=== PATIENT | male | born 1995 | race Caucasian/White ===

== ENCOUNTER 2018-04-18 21:16 | Emergency (ER) | payer BC ==
[~2018-04-18 21:16] MED LIST: POLY10DR22 OP
[2018-04-18 21:20] VITALS: BP 131/90
--- NOTE | 2018-04-18 21:20 | ER Report ---
History and Physical Time Seen By MD: 21:19 HPI/ROS CHIEF COMPLAINT: Flash paniagua HISTORY OF PRESENT ILLNESS: 23-year-old male presents with burning eye pain bilaterally. 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 Complaining of bilateral flash paniagua from welding. He states he thought he was wearing goggles at all times. REVIEW OF SYSTEMS: Respiratory: No cough, no dyspnea. Cardiovascular: No chest pain, no palpitations. Gastrointestinal: No vomiting, no abdominal pain. Musculoskeletal: No back pain. Allergies: Coded Allergies: No Known Drug Allergies (Unverified , 04/18/18) Home Meds Discontinued Scripts Polymyxin B Sulf/Trim 10,000 Unt-1 Mg/Ml Op (POLYMYXIN B-TMP EYE DROPS) 10 Ml Drops, 1 DROP OP 4 times, #1 BOT Prov:CHANDA SUMNER PA-C 01/26/17 Reviewed Nurses Notes: Yes Old Medical Records Reviewed: Yes Hx Substance Use Disorder: No Hx Alcohol Use: Yes (occasional) Constitutional Vital Sign - Last 24 Hours 04/18/18 21:20 Temp 97.7 Pulse 86 Resp 16 B/P (MAP) 131/90 Pulse Ox 93 O2 Delivery Room Air Physical Exam General Appearance: The patient is alert, has no immediate need for airway protection and no current signs of toxicity. Visual acuity noted Eyes: Pupils equal and round no injection. Floor seen is instilled in the eyes bilaterally. There is bilateral stippling, right greater than left. There is minimal injection of the conjunctiva bilaterally Respiratory: Chest is non tender, lungs are clear to auscultation. Cardiac: regular rate and rhythm Extremities have full range of motion and are non tender. Skin: No rashes or lesions. DIFFERENTIAL DIAGNOSIS: After history and physical exam differential diagnosis w as considered for ultraviolet flash paniagua, conjunctivitis, iritis Medical Decision Making ED Course/Re-evaluation ED Course Patient was admitted to an examination room. H&P was done. The differential diagnoses was considered. On clinical examination. Patient is ultraviolet paniagua. His visual acuities is consistent with his injuries. Patient's discharged home with a prepack of Lortab 2 tablets for pain relief. He is given proparacaine drops and cautioned not to rub his eyes. If he is using proparacaine for pain relief. He's also advised to take ibuprofen. Patient's given Tobrex drops to use. He is advised to follow-up with ophthalmology if unimproved in 2 days. Decision to Disposition Date: Apr 18, 2018 Decision to Disposition Time: 21:42 Depart Departure Latest Vital Signs Vital Signs Date Time Temp Pulse Resp B/P (MAP) Pulse Ox O2 Delivery O2 Flow Rate FiO2 04/18/18 21:20 97.7 86 16 131/90 93 Room Air Impression: Primary Impression: Flash burn of both eyes Condition: Improved Disposition: HOME OR SELF-CARE Referrals: LORI ALCANTAR MD New Scripts No Active Prescriptions or Reported Meds Patient Instructions: Corneal Flash Paniagua (ED) Additional Instructions: Use Tobrex drops 1 drop 2-3 times per day Take ibuprofen as needed for pain relief Use proparacaine numbing drops, be extremely careful not to rub her eye when your eyes are non-mucousy and damaged her corneas Follow-up with ophthalmology if unimproved in 2 days CONSTANTINO ROCA DO Apr 18, 2018 21:20
[2018-04-18] MEDS ORDERED: TOBRAMYCIN/DEX OP SUSP 2.5 ML OU ONE (21:30)
[2018-04-18] MEDS ORDERED: PROPARACAINE 0.5% OP 15ML BTL OU ONE (21:30)
[2018-04-18] MEDS ORDERED: PROPARACAI/FLUORESCEIN 5 ML OP DROPS OU ONE (21:40)
[2018-04-18] MEDS ORDERED: ACET/HYDROC 5/325MG TH ER ONLY 2 TAB/BOTTLE PO ONE (21:45)
== END 2018-04-18 21:54 | disposition home or self-care (01) ==
LOC: ER 21:48
DX: T26.42XA Burn of left eye and adnexa, part unspecified, initial encounter (principal); T26.41XA Burn of right eye and adnexa, part unspecified, initial encounter; W89.0XXA Exposure to welding light (arc), initial encounter
CPT/HCPCS: 99283

== ENCOUNTER 2018-04-20 13:56 | Emergency (ER) | payer BC ==
[2018-04-20 14:00] VITALS: BP 136/92
[2018-04-20] MEDS ORDERED: TOBR5DRO OP (14:02)
[2018-04-20] MEDS ORDERED: PROPARACAINE 0.5% OP 15ML BTL OD ONE (14:20)
[2018-04-20] MEDS ORDERED: PROPARACAI/FLUORESCEIN 5 ML OP DROPS OP ONE (14:20)
--- NOTE | 2018-04-20 14:54 | ER Report ---
History and Physical Time Seen By MD: 14:05 Hx. of Stated Complaint: BURN TO LEFT EYE FROM WELDING TWO DAYS AGO - REPORTS THAT THE PAIN IS WORSE TODYA. HPI/ROS CHIEF COMPLAINT: burn to eye HISTORY OF PRESENT ILLNESS: Patient returns 2 days after reported welding burn to bilateral eyes with increasing pain especially in the left eye. Patient states that he was wearing mask however felt that there was reflexion from welding and had gradual onset of pain. Patient has been using proparacaine and topical abx without sig relief. Pt states pain in r eye is essentially resolved, l eye is increasing. Pt denies woody other than radiating from eyes, denies fever, sob, cp, or other systemic symptoms, other than nausea from pain. REVIEW OF SYSTEMS: Respiratory: No cough, no dyspnea. Cardiovascular: No chest pain, no palpitations. Gastrointestinal: No vomiting, no abdominal pain. Musculoskeletal: No back pain. Remainder of the 14 system rev: Yes Allergies: Coded Allergies: No Known Drug Allergies (Unverified , 04/18/18) Home Meds Reported Medications Tobramycin (TOBRAMYCIN) 5 Ml Drops, 5 ML OP TID 04/20/18 Discontinued Scripts Polymyxin B Sulf/Trim 10,000 Unt-1 Mg/Ml Op (POLYMYXIN B-TMP EYE DROPS) 10 Ml Drops, 1 DROP OP 4 times, #1 BOT Prov:CHANDA SUMNER PA-C 01/26/17 Hx Substance Use Disorder: No Hx Alcohol Use: Yes (occasional) Constitutional Vital Sign - Last 24 Hours 04/20/18 14:00 Temp 98.8 Pulse 81 Resp 18 B/P (MAP) 136/92 Pulse Ox 94 O2 Delivery Room Air Physical Exam General Appearance: Alert, mild discomfort Eyes: Pupils equal and round no pallor, Left eye has moderate injection. There is no discharge. There is evidence of metallic foreign body. Fluorescein exam reveals uptake, approx 1 mm mid visual axis, 2 mm below horizontal midline. Negative Ofelia's Slit lamp exam: L/L/L - nl Conj/Sclera- mild conj injection; no scleritis Cornea - metallic fb as above AC: D/Q no cell/flare Skin: Periorbital skin is not inflamed. DIFFERENTIAL DIAGNOSIS: After history and physical exam differential diagnosis was considered for a red eye including but not limited to foreign body, conjunctivitis, iritis and corneal abrasion. Medical Decision Making ED Course/Re-evaluation ED Course FB OS noted; I removed fb but rust ring persists. I controlled pain with lortab and cyclogel. I consulted [facility] and pt will f/u tomorrow AM at 0810. Pt comfortable with plan; there is no e/o open globe, hyphema, or other complication. Tetanus updated as pt did not know last tetanus. Procedure Procedure: Foreign body removal from eye cornea: Anesthesia: Topical After verbal consent from the patient, an embedded metal foreign body was removed from left eye cornea. The foreign body was removed manually using a needle using direct visualization. Following removal there was a rust ring. After verbal consent, I attempted to remove rust ring with rey; superficial layer removed, however deeper rust ring was present. There were no complications and the patient tolerated the procedure well. The procedure was performed by myself. Fluorescein exam after removal was neg for Ofelia's sign Pt's VA 20/100 L with pinhole correction Decision to Disposition Date: Apr 20, 2018 Decision to Disposition Time: 16:08 Depart Departure Latest Vital Signs Vital Signs Date Time Temp Pulse Resp B/P (MAP) Pulse Ox O2 Delivery O2 Flow Rate FiO2 04/20/18 14:00 98.8 81 18 136/92 94 Room Air Impression: Primary Impression: Eye foreign body Condition: Improved Disposition: HOME OR SELF-CARE New Scripts Diazepam (VALIUM) 5 Mg Tablet 5 MG PO QHS for PAIN, #2 TAB Prov: LESA COOK MD 04/20/18 Hydrocodone Bit/Acetaminophen (HYDROCODON-ACETAMINOPHEN 5-325) 1 Each Tablet 1 EACH PO Q4H PRN for PAIN, #12 TAB 0 Refills Prov: LESA COOK MD 04/20/18 Patient Instructions: Eye Foreign Body (ED) Additional Instructions: As we discussed; 1) You have an appointment tomorrow at [address] Brush: [facility] [address] [facility] [address] Take pain medications as needed; continue to use topical antibiotics. Do NOT use topical numbing drops (proparacain/alcaine, etc.) as this may cause predatory animal exterminator cornea damage. Return for uncontrolled pain or any concerns. Problem Qualifiers Primary Impression: Eye foreign body Encounter type: initial encounter Laterality: left Qualified Codes: T15.92XA - Foreign body on external eye, part unspecified, left eye, initial encounter LESA COOK MD Apr 20, 2018 14:54
[2018-04-20] MEDS ORDERED: CYCLOPENTOLATE HCL 1% OD ONE (14:55)
[2018-04-20] MEDS ORDERED: APAP/HYDROCODONE 325/5 TAB PO ONE (15:25)
[2018-04-20] MEDS ORDERED: DIA5 PO (15:59)
[2018-04-20] MEDS ORDERED: LOR5/325 PO (15:59)
[2018-04-20] MEDS ORDERED: DIPHTH/TETANUS/ACEL. PERTUSSIS IM ONLY ONE (16:00)
== END 2018-04-20 16:10 | disposition home or self-care (01) ==
LOC: ER 14:01
DX: T15.92XA Foreign body on external eye, part unspecified, left eye, initial encounter (principal)
CPT/HCPCS: 90471; 90715; 99283

== ENCOUNTER → 2018-06-27 | Outpatient (REF) | payer BC ==
[~2018-06-27] MED LIST changes: +DIA5 PO; +LOR5/325 PO; +TOBR5DRO OP
== END ==
LOC: ZZSENDIN 17:02
PROVIDERS: ATTEND Family Medicine
DX: K92.0 Hematemesis (principal)
CPT/HCPCS: 83690

== ENCOUNTER 2018-07-09 10:56 | Outpatient (RCR) | payer BC ==
[~2018-07-09 10:56] MED LIST changes: +PANT40TA65 PO
[2018-07-13] MEDS ORDERED: OMEP-125 PO (09:55)
[2018-07-13] MEDS ORDERED: THIA100T2 PO (09:55)
== END 2018-08-13 ==
LOC: RAD 10:56
PROVIDERS: ATTEND Surgery
DX: Z02.9 Encounter for administrative examinations, unspecified (principal)

== ENCOUNTER → 2018-07-23 | Day surgery (SDC) | payer BC ==
[~2018-07-23] VITALS: Ht 182.9 cm; Wt 77.1 kg
[~2018-07-23] MED LIST changes: +GLYCOPYRROLATE 0.2MG/ML 1 ML INJ IVP ONE; +LIDOCAINE MPF 1% 5 ML VIAL ONE; +LIDOCAINE/SOD BICARB 8.4% SYR ID ONE; +NORMOSOL R SOLN(*) 1000 ML BAG 1,000 ML IV PRN; +OMEP-125 PO; +PROPOFOL EMUL(*) 10MG/ML 20 ML 60 ML ONE; +THIA100T2 PO
[2018-07-23 07:41] VITALS: BP 127/85
[2018-07-23 08:30] VITALS: BP 105/62
[2018-07-23 08:45] VITALS: BP 115/69
--- NOTE | 2018-07-23 08:50 | Short(Outpt) Discharge Summary ---
Discharge Summary Reason for Hosp/Final Diag: (1) Hematemesis Status: Resolved Hospital Course & Plan: EGD with biopsies completed without problems. (2) Melena Status: Resolved (3) Nausea & vomiting Status: Resolved Departure Discharge to: Home, Self Care Discharge Instructions Home Meds Reported Medications Omeprazole (OMEPRAZOLE) 20 Mg Capsule.dr, 1 CAP PO QDAY, CAP 07/13/18 Thiamine Mononitrate (VITAMIN B-1) 100 Mg Tablet, 100 MG PO DAILY 07/13/18 Diet: Regular Activity: As Tolerated Special Instructions: You upper endoscopy and the x-ray test where you drank the contrast were both completed without any problems. They were both normal other than a small polyp that I removed from your esophagus and sent it to pathology. I also biopsied your stomach to look for H. pylori, a bacteria that can sometimes cause stomach issues such as ulcers. I didn't see any ulcers in your stomach or duodenum today and there was no other abnormalities in your stomach or duodenum. If you had an ulcer, it has healed by now. You could also have had alcohol-related gastritis which can also cause the symptoms that you had but it has improved as well. I recommed that you continue taking omeprazole for 3 months total and then stop it and see if your symptoms recur. Limit your alcohol consumption to 1 glass per day. My office will call you in the next week or 2 and let you know what the biopsy results are. Happy New Year! Problem Qualifiers (1) Hematemesis: Nausea presence: with nausea Qualified Codes: K92.0 - Hematemesis (2) Nausea & vomiting: Vomiting type: unspecified Vomiting Intractability: non-intractable Qualified Codes: R11.2 - Nausea with vomiting, unspecified DU MATA MD Jul 23, 2018 08:50
[2018-07-23 09:00] VITALS: BP 114/66
[2018-07-23 09:08] VITALS: BP 114/79
[2018-07-23 09:10] VITALS: BP 108/83
--- NOTE | 2018-07-23 11:31 | NUR ---
0830 PT REC'D IN SD LEFT LAT POSITION, UNRESPONSIVE, SO HARSH AT BEDSIDE, VSS 0838 DOWN TO 4L MASK 0841 DOWN TO 2 L MASK, SATTING WELL 0845 PT TOLERATING WATER WELL, SEMI-FOWLERS 0908 ORTHOSTATICS STARTED, STABLE, PT DENIES DIZZINESS 09 D/C INSTRUCTIONS COVERED, NO QUESTIONS AT THIS TIME, DISCUSSED ACIDIC FOODS AND F/U INSTRUCTIONS FROM DR. MATA 0921 IV D/C'D REASSESSED, EXPIRATORY WHEEZES RESOLVED 924 WALKED TO CAR OUTSIDE OF ADMITTING ENTRANCE, DECLINED WC, ALL BELONGINGS WITH PT, SELF-TRANSFERRED TO CAR WITHOUT INCIDENT
== END ==
LOC: OR 00:44
PROVIDERS: ATTEND Surgery
DX: K20.9 Esophagitis, unspecified (principal)
CPT/HCPCS: 36415; 43239; 83516; 87077; 88305; 88313; J2001; J2704; J3490